=== PATIENT | female | born 1995 | race Caucasian/White ===

== ENCOUNTER 2022-04-05 05:26 | Emergency (ER) | payer BC, SELFPAY ==
[2022-04-05 05:34] VITALS: BP 139/82; PULSE 106; RESP 16; TEMP 36.7; O2SAT 99
[2022-04-05 05:41] LABS: Bilirubin Negative (Negative); Blood Trace-intact (Negative); Clarity Clear (Clear); Glucose Negative (Negative); Ketones Negative (Negative); Leukocyte Esterase Negative (Negative); Nitrite Negative (Negative); Specific Gravity >= 1.030 (1.005-1.025); Urobilinogen 0.2 EU/dL (Up TO 0.2); pH 6.5 (5-8)
[2022-04-05 05:47] LABS: Bacteria Rare HPF (Negative); C & S Indicated? No; Casts Negative LPF (Negative); Crystals Negative HPF (Negative); Epithelial Cells Rare HPF (Negative); Mucus Negative (Negative); WBC Negative HPF (0-5)
[2022-04-05] MEDS: Normal Saline 1,000 ML 1000 ML IV (06:00)
--- NOTE | 2022-04-05 06:12 | ED.GENADUL_ITS ---
Discharge Plan Disposition Patient Disposition: HOME Condition: Stable Discharge Details Clinical Impression: Abdominal pain Primary Care Provider: [facility] Provider: Abiodun Devlin Home Meds and New Rx's Prescriptions: New ondansetron 4 mg tablet,disintegrating 4 mg PO Q8H PRN (Reason: nausea and vomiting) Qty: 30 0RF Continued cetirizine [Zyrtec] 10 mg Tablet 10 mg PO DAILY propranolol 10 mg Tablet 10 mg PO PRN docusate sodium [Colace] 100 mg Capsule 100 mg PO PRN polyethylene glycol 3350 [Miralax] 17 gram/dose Powder PRN Contrave 8-90 mg Tablet Extended Release 1 tab PO DAILY Discharge Instructions Instructions: Abdominal Pain (ED) Additional Instructions: your lab work and cat scan did not show concerning findings at this time follow up with your primary care or database marketing manager as soon as possible if symptoms continue if you feel more ill, have severe worsening pain or persistent vomiting return to the emergency department Discharge Data Discharge Date/Time-TO BE ENTERED AT DEPARTURE: 04/05/22 12:50 Medical Decision Making <Sarita Santos DO - Last Filed: 04/06/22 04:49> Dr. Santos 0600 -- 26-year-old female with a history of depression presents with epigastric abdominal pain and nausea since 2 AM. Patient noted to be uncomfortable at times. She otherwise appears nontoxic. She is obese and tender in the epigastrium, right upper and left upper quadrant. Urine test negative. Differential diagnosis includes biliary colic, cholecystitis, gastritis, pancreatitis, GERD, PUD. We will place an IV, bolus IV fluids, screening labs, IV Pepcid, Carafate, GI cocktail, Zofran, fluids and reassess. 0710 -- labs reviewed and unremarkable. White blood cell count 10. Alkaline phosphatase is very minimally elevated at 123. Remainder of LFTs, bilirubin and lipase within normal limits. Patient reassessed and she is still complaining of significant epigastric pain. Patient is taking Contrave for her depression which contains naltrexone. There is an interaction with Dilaudid as naltrexone is an opiate antagonist. Patient appears to be in significant pain but nontoxic. Will order a dose of IV Tylenol and IV Dilaudid. Will attempt to order gallbladder ultrasound. If ultrasound unavailable, will proceed with CT abdomen and pelvis which patient is agreeable. 0800 -- Case endorsed to Dr. Devlin to follow up with radiology if able to obtain gallbladder ultrasound. If highway traffic control technician unavailable, will proceed with CT abdomen and pelvis. Dr. Devlin patient signed out to me, no u/s tech available, still has epigastric and ruq tenderness, no guarding or rebound, discussed with pt and she consents to proceeding with ct for further evaluation of her pain. She states she has had endoscopies in [place] where she goes to school and was told it showed no abnormalities, no signs of reflux. pt stable, ct read is no acute findings. She continues to appear well in no distress, mild epigastric tenderness, no guarding or rebound. Given reassuring workup feel she is stable for d/c, advised to f/u with her gi specialist she sees in [place], return precautions given Medical Records Medical records reviewed: Yes I reviewed the patient's medical records. Lab Data Lab results reviewed: Yes I reviewed the patient's lab results. Labs: Laboratory Tests Range/Units 04/05/22 04/05/22 04/05/22 05:35 05:45 05:45 WBC (4.4-10.8) 10^3/uL 10.10 RBC (3.93-5.22) 10^6/uL 4.69 Hgb (11.2-15.7) g/dL 14.6 Hct (36.0-46.0) % 41.1 MCV (80-95) fL 88 MCH (27.0-33.0) pg 31.1 MCHC (32.0-36.0) % 35.5 RDW (11.7-14.6) % 12.2 Plt Count (130-400) 10^3/uL 265 MPV (8.0-11.0) fL 11.4 H Immature Gran % 0.4 Neutrophils % 72.0 Lymphocytes % 20.6 Monocytes % 5.4 Eosinophils % 1.2 Basophils % 0.4 Nucleated RBC % (0.0-0.3) % 0.0 Absolute Neutrophils (1.2-6.7) 10^3/uL 7.27 H Absolute Lymphocytes (1.2-3.4) 10^3/uL 2.08 Absolute Monocytes (0.1-0.8) 10^3/uL 0.55 Absolute Eosinophils (0.0-0.7) 10^3/uL 0.12 Absolute Basophils (0.0-0.2) 10^3/uL 0.04 Sodium (136-145) mmol/L 140 Potassium (3.5-5.1) mmol/L 3.7 Chloride (98-107) mmol/L 102 Carbon Dioxide (21.0-32.0) mmol/L 31.0 Anion Gap (3-11) mmol/L 7.0 BUN (7-18) mg/dL 11 Creatinine (0.55-1.02) mg/dL 0.9 Est GFR (CKD-EPI 2020) (mL/min/1.73m2) 90.42 Glucose (74-106) mg/dL 95 Calcium (8.5-10.1) mg/dL 9.5 Total Bilirubin (0.2-1.0) mg/dL 0.4 AST (15-37) U/L 12 L ALT (14-59) U/L 22 Alkaline Phosphatase (46-116) U/L 123 H Total Protein (6.4-8.2) g/dL 8.1 Albumin (3.4-5.0) g/dL 4.1 Lipase (73-393) U/L 68 Urine Color (Yellow) Yellow Urine Clarity (Clear) Clear Urine pH (5-8) 6.5 Ur Specific Brandon (1.005-1.025) >= 1.030 H Urine Protein (Negative) mg/dL Negative Urine Ketones (Negative) mg/dL Negative Urine Blood (Negative) Trace-intact H Urine Nitrite (Negative) Negative Urine Bilirubin (Negative) Negative Urine Urobilinogen (Up TO 0.2) EU/dL 0.2 Ur Leukocyte Esterase (Negative) Negative Urine RBC (0-2) HPF 3-5 H Urine WBC (0-5) HPF Negative Ur Epithelial Cells (Negative) HPF Rare Urine Crystals (Negative) HPF Negative Urine Bacteria (Negative) HPF Rare Urine Casts (Negative) LPF Negative Urine Mucus (Negative) Negative Ur Culture Indicated? No Urine Glucose (Negative) mg/dL Negative <Abiodun Devlin MD - Last Filed: 04/05/22 10:10> 0600 -- 26-year-old female with a history of depression presents with epigastric abdominal pain and nausea since 2 AM. Patient noted to be uncomfortable at times. She otherwise appears nontoxic. She is obese and tender in the epigastrium, right upper and left upper quadrant. Urine test negative. Differential diagnosis includes biliary colic, cholecystitis, gastritis, pancreatitis, GERD, PUD. We will place an IV, bolus IV fluids, screening labs, IV Pepcid, Carafate, GI cocktail, Zofran, fluids and reassess. 0710 -- labs reviewed and unremarkable. White blood cell count 10. Alkaline phosphatase is very minimally elevated at 123. Remainder of LFTs, bilirubin and lipase within normal limits. Patient reassessed and she is still complaining of significant epigastric pain. Patient is taking Contrave for her depression which contains naltrexone. There is an interaction with Dilaudid as naltrexone is an opiate antagonist. Patient appears to be in significant pain but nontoxic. Will order a dose of IV Tylenol and IV Dilaudid. Will attempt to order gallbladder ultrasound. If ultrasound unavailable, will proceed with CT abdomen and pelvis which patient is agreeable. 0800 -- Case endorsed to Dr. Devlin to follow up with radiology if able to obtain gallbladder ultrasound. If highway traffic control technician unavailable, will proceed with CT abdomen and pelvis. patient signed out to me, no u/s tech available, still has epigastric and ruq tenderness, no guarding or rebound, discussed with pt and she consents to p roceeding with ct for further evaluation of her pain. She states she has had endoscopies in [place] where she goes to school and was told it showed no abnormalities, no signs of reflux. pt stable, ct read is no acute findings. She continues to appear well in no distress, mild epigastric tenderness, no guarding or rebound. Given reassuring workup feel she is stable for d/c, advised to f/u with her gi specialist she sees in [place], return precautions given HPI <Sarita Santos DO - Last Filed: 04/06/22 04:49> General Mode of arrival: ambulatory . Date/Time Provider Initiated Documentation: 04/05/22 05:52 . Limitations to Documentation: no limitations . Information obtained by: patient . HPI Narrative: Patient is a 26-year-old female who presents with upper abdominal pain that awoke her from sleep since 2 AM. Patient describes the pain as intermittent, squeezing and located in the epigastrium. She states the pain occurs at random and denies any known aggravating or alleviating factors. She states she did take 4 Tums with minimal relief. She admits to nausea but denies any vomiting, fever, diarrhea or urinary symptoms. She states she is visiting here from [place] and was supposed to travel back home today. She states she ate a meal of roasted chicken and potatoes with brownies and ice cream last night. She states she also did have a glass of wine. She states she drinks alcohol rarely and denies any drug use. She denies any recent antibiotics. Related Data Home Medications Medication Instructions Recorded Confirmed cetirizine 10 mg tablet (Zyrtec) 10 mg PO DAILY 04/05/22 04/05/22 docusate sodium 100 mg capsule 100 mg PO PRN 04/05/22 (Colace) naltrexone 8 mg-bupropion 90 mg 1 tab PO DAILY 04/05/22 04/05/22 tablet,extended release (Contrave) ondansetron 4 mg disintegrating 4 mg PO Q8H PRN nausea and 04/05/22 tablet vomiting #30 tabs polyethylene glycol 3350 17 g PRN 04/05/22 gram/dose oral powder (Miralax) propranolol 10 mg tablet 10 mg PO PRN 04/05/22 Previous Rx's Medication Instructions Recorded ondansetron 4 mg disintegrating 4 mg PO Q8H PRN nausea and 04/05/22 tablet vomiting #30 tabs Allergies Allergy/AdvReac Type Severity Reaction Status Date / Time azithromycin Allergy Unverified 04/05/22 05:38 General Stated Complaint: Abd Prob KITA: 3 Review of Systems <Sarita Santos DO - Last Filed: 04/06/22 04:49> All systems reviewed & are unremarkable except as noted in HPI and below Constitutional Constitutional: Reports as per HPI, Denies chills, Denies excessive sweating, Denies fatigue and Denies fever(s) Eyes Eyes: Denies blurry vision ENT Ears, Nose, Mouth, and Throat: Denies dizziness, Denies sore throat and Denies throat swelling Cardiovascular Cardiovascular: Denies chest pain and Denies dyspnea Respiratory Respiratory: Denies cough and Denies dyspnea Gastrointestinal Gastrointestinal: Reports abdominal pain, Denies diarrhea, Reports nausea and Denies vomiting Genitourinary Genitourinary: Denies hematuria and Denies dysuria Musculoskeletal Musculoskeletal: Denies back pain and Denies numbness Integumentary/Breasts Skin/Breast: Denies lesions and Denies rash Neurologic Neurologic: Denies behavioral changes, Denies confusion, Denies dizziness, Denies localized weakness and Denies numbness Psychiatric Psychiatric: Denies behavioral changes, Denies confusion and Denies depression Endocrine Endocrine: Denies excessive sweating and Denies fatigue Hematologic/Lymphatic Hematologic/Lymphatic: Denies easy bruising and Denies lymphadenopathy Allergic/Immunologic Allergic/Immunologic: Denies throat swelling PFSH <Sarita Santos DO - Last Filed: 04/06/22 04:49> All Active Problems (Updated 04/05/22 @ 08:05 by Sarita Santos DO) Abdominal pain (Acute) Medical History (Updated 04/05/22 @ 08:05 by Sarita Santos DO) Depression Surgical History (Updated 04/05/22 @ 06:59 by Sarita Santos DO) History of adenoidectomy History of tonsillectomy Social History Smoking/Tobacco Use Status: Never Smoking risk assessment performed?: Yes Substance use type: does not use Do you feel safe at home: Yes Exam <Sarita Santos DO - Last Filed: 04/06/22 04:49> Const General: cooperative Nutritional Appearance: obese morbidly obese Orientation: alert, awake and oriented x3 HENMT Head: normal to inspection Ears: hearing grossly normal bilaterally and external ears normal Eyes General: appearance normal, both eyes and all related structures Eyelids: eyelids normal Pupils: PERRL EOM: EOM intact bilaterally Neck Neck: normal visual inspection Lymphatic: no lymphadenopathy noted Chest Chest: normal inspection of the chest Resp Effort & Inspection: normal respiratory effort and able to speak in complete sentences Auscultation: clear to auscultation bilaterally Cardio Rate: tachycardic Rhythm: regular rhythm GI Inspection: normal to inspection and obesity Palpation: soft, not firm, no guarding, no hepatosplenomegaly, no masses and tender in the epigastrum, in the LUQ and in the RUQ Auscultation: hypoactive bowel sounds Skin General skin exam: no rashes or lesions noted Neuro General: patient alert and patient awake Cognition: normal cognition Speech: speech normal Gait: normal gait Motor: muscle tone normal throughout Sensory Exam: no sensory deficits noted Extrem General: normal to inspection, full ROM, capillary refill normal and no edema Psych Appearance: grossly normal Mental Status: mental status grossly normal Speech and Movement: speech and movement normal Affect: normal affect Thought Process: normal Course <Sarita Santos DO - Last Filed: 04/06/22 04:49> Vital Signs Vital signs: Vital Signs Temperature 98.1 F 04/05/22 05:34 Pulse 106 H 04/05/22 05:34 Respiratory Rate 16 04/05/22 05:34 Blood Pressure 139/82 04/05/22 05:34 Pulse Oximetry 99 04/05/22 05:34 Temperature 98.1 F 04/05/22 05:34 Temperature Source Temporal Artery Scan 04/05/22 05:34 Pulse 106 H 04/05/22 05:34 Respiratory Rate 16 04/05/22 05:34 Respiratory Effort 04/05/22 05:34 Blood Pressure 139/82 04/05/22 05:34 Blood Pressure Position Sitting 04/05/22 05:34 Pulse Oximetry 99 04/05/22 05:34 Oxygen Delivery Method Room Air 04/05/22 05:34 Oxygen Flow Rate 0 04/05/22 05:34 Pain Level 10 04/05/22 05:34 Lab/Test Results Lab/Test Results: Laboratory Tests Range/Units 04/05/22 05:35 Urine Color (Yellow) Yellow Urine Clarity (Clear) Clear Urine pH (5-8) 6.5 Ur Specific Brandon (1.005-1.025) >= 1.030 H Urine Protein (Negative) mg/dL Negative Urine Ketones (Negative) mg/dL Negative Urine Blood (Negative) Trace-intact H Urine Nitrite (Negative) Negative Urine Bilirubin (Negative) Negative Urine Urobilinogen (Up TO 0.2) EU/dL 0.2 Ur Leukocyte Esterase (Negative) Negative Urine RBC (0-2) HPF 3-5 H Urine WBC (0-5) HPF Negative Ur Epithelial Cells (Negative) HPF Rare Urine Crystals (Negative) HPF Negative Urine Bacteria (Negative) HPF Rare Urine Casts (Negative) LPF Negative Urine Mucus (Negative) Negative Ur Culture Indicated? No Urine Glucose (Negative) mg/dL Negative POC- Test(urine) Negative Sign Out <Sarita Santos DO - Last Filed: 04/06/22 04:49> Sign Out Data: Sign Out Comment: Nausea and epigastric abdominal pain since 2 AM. Labs unremarkable. Follow-up with radiology if able to obtain highway traffic control technician for gallbladder ultrasound. If ultrasound unavailable, proceed with CT abdomen and pelvis. If work-up negative and patient improves, can discharge to home. Last updated by Sarita Santos DO at 04/05/22 07:51 PAWSS <Sarita Santos DO - Last Filed: 04/06/22 04:49> Have you Been Recently Intoxicated or Drunk Within the Last 30 days?: Yes Have you Ever Experienced Previous Episodes of Alcohol Withdrawal?: No Have you ever Experienced Withdrawal Seizures?: No Have you ever Experienced Delirium Tremens(DT)s?: No Have you ever undergone Alcohol Rehabilitation Treatment (i.e, inpt ot outpatient treatment programs)?: No Have you ever Experienced Blackouts?: No Have you ever Combined Alcohol with any other Substance of Abuse during the last 90 days?: No Positive Blood Alcohol level on Presentation? [PCS.BAL]: No Evidence of Increased Autonomic Activity (i.e. HR>120, tremor, sweating, agitation, nausea)?: No Result: 1 <Abiodun Devlin MD - Last Filed: 04/05/22 10:10> Result: 1
[2022-04-05] MEDS: Ondansetron 4 MG/2 ML VIAL IVP (06:15)
[2022-04-05 06:20] LABS: Abs Immature Grans 0.04 10^3/uL (0.0-0.06); Absolute Basophil Count 0.04 10^3/uL (0.0-0.2); Absolute Eosinophil Count 0.12 10^3/uL (0.0-0.7); Absolute Lymphocyte Count 2.08 10^3/uL (1.2-3.4); Absolute Monocyte Count 0.55 10^3/uL (0.1-0.8); Absolute Neutrophil Count 7.27 10^3/uL (1.2-6.7); Basophils % 0.4; Eosinophils % 1.2; HCT 41.1 % (36.0-46.0); HGB 14.6 g/dL (11.2-15.7); Immature Grans % 0.4; Lymphocytes % 20.6; MCH 31.1 pg (27.0-33.0); MCHC 35.5 % (32.0-36.0); MCV 88 fL (80-95); MPV 11.4 fL (8.0-11.0); Monocytes % 5.4; Platelet Count 265 10^3/uL (130-400); RBC 4.69 10^6/uL (3.93-5.22); RDW 12.2 % (11.7-14.6)
[2022-04-05] MEDS: Famotidine 20 MG/2 ML VIAL IVP (06:32)
[2022-04-05] MEDS: Sucralfate 1 GM TAB PO (06:32)
[2022-04-05 06:43] LABS: ALT 22 U/L (14-59); AST 12 U/L (15-37); Albumin 4.1 g/dL (3.4-5.0); Alkaline Phosphatase 123 U/L (46-116); BUN 11 mg/dL (7-18); Bilirubin, Total 0.4 mg/dL (0.2-1.0); CREATININE 0.9 mg/dL (0.55-1.02); Calcium 9.5 mg/dL (8.5-10.1); Chloride 102 mmol/L (98-107); Estimated GFR 90.42 (mL/min/1.73m2); Glucose 95 mg/dL (74-106); Lipase 68 U/L (73-393); Potassium 3.7 mmol/L (3.5-5.1); Sodium 140 mmol/L (136-145); Total Protein 8.1 g/dL (6.4-8.2)
[2022-04-05] MEDS: HYDROmorphone 2 MG/ML SYR 0.5 MG IVP (07:33)
[2022-04-05] MEDS: ACETAMINOPHEN 1,000 MG/100 ML BTL 400 MG IVPB (07:33)
--- NOTE | 2022-04-05 08:00 | DI.CT_ITS ---
Exam(s) CT ABDOMEN PELVIS W EXAM: CT ABDOMEN PELVIS W CLINICAL HISTORY: upper abdominal pain. TECHNIQUE: Imaging Protocol: Axial computed tomography images with coronal and sagittal reformatted images were created and reviewed CONTRAST MATERIAL: Intravenous: Omnipaque 100cc Oral: None COMPARISON: No exams were available for comparison FINDINGS: VISUALIZED LUNG BASES: No nodules nor pleural effusions evident. ABDOMEN: There is no ascites. LIVER: There are no focal hepatic lesions evident. No dilated intrahepatic ducts. GALLBLADDER/BILIARY: No calcified gallstones seen nor gallbladder distension. Subtle evidence of luis miguel e gallbladder wall edema. CBD is not dilated. PANCREAS: No evidence of pancreatic mass nor dilatation of the pancreatic duct. SPLEEN: Spleen size upper normal. No focal splenic lesions. Splenic and portal veins are patent. ADRENALS: There are no significant adrenal masses. KIDNEYS:No cysts evident. No solid renal masses. No calculi nor hydronephrosis.. ABDOMINAL AORTA: Abdominal aorta is not enlarged. LYMPH NODES:There is no retroperitoneal nor paraaortic adenopathy. ABDOMINAL WALL: Subtle evidence of possible anterior abdominal wall hernia repair. No significant an terior abdominal hernia nor inguinal hernia evident at this time. GI: There is no evidence of bowel obstruction, free air, nor abscess. PELVIS: GI: No evidence of appendicitis.No evidence of sigmoid diverticulitis. LYMPH NODES: There is no intrapelvic nor inguinal adenopathy. REPRODUCTIVE: IUD in satisfactory position in the uterine canal. Uterus is anteverted. Ovaries appe ar age-appropriate. No free fluid. URINARY BLADDER: No calculi nor obvious masses evident OSSEOUS: No significant osseous lesions. Sacroiliac joints unremarkable.. No fractures. IMPRESSION: 1. There is an IUD in satisfactory position in the uterine canal. 2. No obvious calcified gallstones but gallbladder wall appears to be possibly minimally edematous. Correlation with clinical findings recommended. Follow-up gallbladder ultrasound recommended. The b iliary tree is not dilated. 3. There is no ascites. 4. No evidence of appendicitis nor bowel obstruction. RADIATION DOSE DELIVERED: 1,572.54mGy.cm Total DLP DATA REPOSITORY: All CT scans at this facility are submitted to the National Radiology Data Registry (NRDR) Dose Index Registry (DIR) with the [employer] (ACR). RADIATION OPTIMIZATION: All CT scans at this facility use at least one of these dose optimization te chniques: automated exposure control; mA and/or kV adjustment per patient size (includes targeted exa ms where dose is matched to clinical indication); or iterative reconstruction.
[2022-04-05] MEDS: Normal Saline Flush 10 ML SYR IVP (08:42)
[2022-04-05] MEDS: Omnipaque 350 MG/ML 100 ML BTL IJ (08:42)
--- NOTE | 2022-04-05 09:31 | DI.VRAD_ITS ---
PROCEDURE INFORMATION: Exam: CT Abdomen And Pelvis With Contrast Exam date and time: 04/05/2022 8:22 AM Age: 26 years old Clinical indication: Other: Upper abdominal pain TECHNIQUE: Imaging protocol: Computed tomography of the abdomen and pelvis with contrast. Contrast material: OMNIPAQUE 350; Contrast volume: 100 ml; Contrast route: INTRAVENOUS (IV); COMPARISON: No relevant prior studies available. FINDINGS: Lungs: Visualized lung bases are clear. No pleural effusions. Liver: Unremarkable. Gallbladder and bile ducts: Unremarkable. The gallbladder is nondilated. There are no calcified gallstones. There is no intrahepatic or extrahepatic biliary ductal dilation. Pancreas: Unremarkable. Spleen: Unremarkable. The spleen is normal in size. Adrenal glands: Unremarkable. Kidneys and ureters: Unremarkable. No hydronephrosis or hydroureter. Normal and symmetric renal enhancement. No masses. Stomach and bowel: Unremarkable. The stomach is nondilated. The small and large bowel are normal in caliber. Appendix: A nondilated appendix is identified. Intraperitoneal space: Trace pelvic ascites, a nonspecific finding in a young female patient. This may be physiologic. No organized fluid collection or pneumoperitoneum. Retroperitoneal space: Unremarkable. No retroperitoneal collection or mass. Vasculature: Unremarkable. The abdominal aorta is normal in caliber. Lymph nodes: No pathologically enlarged lymph nodes. Urinary bladder: Unremarkable. Reproductive: There is an intrauterine device in place. Otherwise unremarkable. Bones/joints: No suspicious osseous lesions. Mild degenerative disc disease at L5-S1. Soft tissues: Unremarkable. IMPRESSION: No acute abnormality in the abdomen or pelvis. No evidence of an inflammatory or obstructive process. Dictated and Authenticated by: Ludy Smith MD. Ordering:KATE Rascon MD
[2022-04-05 10:03] VITALS: BP 105/56; PULSE 56; RESP 16; TEMP 36.6; O2SAT 99
== END 2022-04-05 12:50 | disposition home or self-care (01) ==
PROVIDERS: Physician Assistant; Emergency Provider Emergency Medicine
DX: R10.13 Epigastric pain (principal); R11.0 Nausea; R10.816 Epigastric abdominal tenderness; R10.811 Right upper quadrant abdominal tenderness; R10.812 Left upper quadrant abdominal tenderness; E66.01 Morbid (severe) obesity due to excess calories; R00.0 Tachycardia, unspecified
CPT/HCPCS: 36415; 80053; 81025; 83690; 96361; 96374; 96375; 99285; 74177; 81003; 81015; 85025; 99284; J0131; J1170; J2405; J3490